=== PATIENT | male | born 1965 | race Caucasian/White ===

== ENCOUNTER 2023-06-12 08:26 | Emergency (ER) | payer BC ==
[~2023-06-12] VITALS: Ht 182.9 cm; Wt 118.5 kg
--- OUTSIDE RECORDS SUMMARY | ~2023-06-12 | XMS | Continuity of Care Document ---
Demographics + + + | Address | [address] | | | [place] [address] | + + + | Preferred Language | Unknown | + + + | Marital Status | Never | + + + | Synagogue Affiliation | Unknown | + + + | Race | White | + + + | Ethnic Group | Unknown | + + + Author + + + | Author | [place] | + + + | Organization | [place] | + + + | Address | [address] | | | [place] [address] | + + + | Phone | | + + + Care Team Providers + + + + | Care Design Release Engineer Name | Role | Phone | + + + + Unavailable | Unavailable | + + + + Unavailable | Unavailable | + + + + Allergies No information. Encounters No information. Functional Status No information. Immunizations No information. Medications + + + + | date | description | facility | + + + + | 2021-10-25 00:00 | drug or medication | [facility] | | | | | + + + + Problems + + + + | date | description | facility | + + + + | 2023-06-06 19:57 | BILATERAL PRIMARY | [facility] | | | OSTEOARTHRITIS OF HIP | | + + + + | 2023-06-06 19:57 | STRAIN OF MUSCLE AND | [facility] | | | TENDON OF BACK WALL OF | | | | THORAX, INIT | | + + + + Procedures No information. Results/Labs +--------+--------+ +---------+--------+---------+ | test | date | facility | value | unit | notes | +--------+--------+ +---------+--------+---------+ + + | [facility] COVID-19 Rapid Antigen test | + + + + + + + + + | [facility] | 2021-10-21 | [facility] | Negative | (missing) | (missing) | | [facility] | 11:57 | [facility] | | | | | COVID-19 | | [facility] | | | | | Rapid Test | | | | | | + + + + + + + Social History + + + + | date | description | facility | + + + + | 2021-10-25 00:00 | Unknown if ever smoked | [facility] | | | | | + + + + Vital Signs + + +---------+ + | date | measurement | value | units | + + +---------+ + | 2021-10-21 00:00 | heart_rate | 1|1| | completed | + + +---------+ + | 2021-10-21 00:00 | heart_rate | 77 | /min | + + +---------+ + | 2021-10-21 00:00 | o2_saturation | 97 | % | + + +---------+ + | 2021-10-21 00:00 | temperature_metric | 36.39 | C | | | | | | + + +---------+ + | 2021-10-21 00:00 | | 97.5 | F | | | temperature_standar | | | | | d | | | + + +---------+ + | 2021-10-21 00:00 | weight_metric | 113.4 | kg | + + +---------+ + | 2021-10-21 00:00 | weight_standard | 250 | lb | + + +---------+ +"
--- OUTSIDE RECORDS SUMMARY | ~2023-06-12 | XMS | Continuity of Care Document ---
Demographics + + + | Address | [address] | | | [place] [address] | + + + | Preferred Language | Unknown | + + + | Marital Status | Never | + + + | Church Affiliation | Unknown | + + + | Race | White | + + + | Ethnic Group | Unknown | + + + Author + + + | Author | [facility] | + + + | Organization | [facility] | + + + | Address | [address] | | | [place] [address] | + + + | Phone | | + + + Care Team Providers + + + + | Care Drier Transfer Car Operator Name | Role | Phone | + + + + Unavailable | Unavailable | + + + + Unavailable | Unavailable | + + + + Allergies No information. Encounters No information. Functional Status No information. Immunizations No information. Medications + + + + | date | description | facility | + + + + | 2021-10-25 00:00 | drug [facility] medication | [facility] | | | [facility] | [...] 00:00 | Unknown if ever smoked | [facility] | | | | | + + [...]
[2023-06-12] MEDS ORDERED: HYDROCODON-ACE1 EA10 (08:52)
[2023-06-12] MEDS ORDERED: PREDNISONE20 MG (08:52)
[2023-06-12] MEDS ORDERED: PERCOCET 5-3251 EACH PO (09:10)
[2023-06-12 09:25] VITALS: BP 140/83
== END 2023-06-12 09:27 | disposition home or self-care (01) ==
LOC: ED 08:26
DX: M54.42 Lumbago with sciatica, left side (principal); Z79.52 Long term (current) use of systemic steroids
CPT/HCPCS: 99283